=== PATIENT | male | born 1950 | race African-American/Black ===

== ENCOUNTER 2017-06-05 15:16 | Emergency (ER) | payer MEDICARE ==
[2017-06-05] MEDS ORDERED: IV NORMAL SALINE 1000ML BAG 1,000 ML IV (15:50)
== END 2017-06-05 15:55 | disposition left against medical advice (07) ==
LOC: ER 15:16
DX: R09.81 Nasal congestion (principal); F10.129 Alcohol abuse with intoxication, unspecified; Z53.21 Procedure and treatment not carried out due to patient leaving prior to being seen by health care provider
CPT/HCPCS: 93005; 99285-25